=== PATIENT | female | born 1955 ===

== ENCOUNTER 2018-12-21 05:59 | Emergency (ER) | payer OTHER ==
[2018-12-21] MEDS ORDERED: LOSA50TA80 PO (06:04)
[2018-12-21] MEDS ORDERED: LEVO50TA86 PO (06:04)
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
[2018-12-21 06:41] LABS: PLATELET COUNT, AUTOMATED 251 K/uL (150-450)
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
[2018-12-21] MEDS ORDERED: IOPAMIDOL 76% 100 ML INFUS BTL 100 ML ONE (06:55)
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
[2018-12-21 06:57] LABS: INR 1.01
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
[2018-12-21] MEDS ORDERED: oxyCODON/ACET (*)5/325MG (CII) 1 TAB TAB PO ONE (08:30)
[2018-12-21] MEDS ORDERED: OXYC5TAB38 PO (09:32)
[2018-12-21 09:35] VITALS: BP 138/89
== END 2018-12-21 10:01 | disposition home or self-care (01) ==
LOC: ER 06:11
DX: S32.010A Wedge compression fracture of first lumbar vertebra, initial encounter for closed fracture (principal); D11.0 Benign neoplasm of parotid gland; V48.6XXA Car passenger injured in noncollision transport accident in traffic accident, initial encounter
CPT/HCPCS: 70450; 71045; 71260; 72125; 72170; 73564; 74177; 81001; 85025; 85610; 85730; 97161; 99284; Q9967; 82040; 82247; 82310; 82374; 82435; 82565; 82947; 84075; 84132; 84155; 84295; 84450; 84460; 84520

== ENCOUNTER → 2018-12-21 | Outpatient (CLI) | payer OTHER ==
[~2018-12-21] MED LIST: LEVO50TA86 PO; LOSA50TA80 PO; OXYC5TAB38 PO
== END ==
LOC: AMB 05:16
PROVIDERS: ATTEND Nurse Practitioner
DX: M54.9 Dorsalgia, unspecified (principal); R51 Headache
CPT/HCPCS: A0425; A0429